=== PATIENT | female | born 1970 | race Caucasian/White ===

== ENCOUNTER 2024-05-05 08:58 | Outpatient (AMB) | payer BC, SELFPAY ==
[2024-05-05 09:12] VITALS: BP 121/84; PULSE 71; RESP 18; TEMP 36.1; O2SAT 99; BMI 36.9
--- NOTE | 2024-05-05 09:12 | PD.ORTHCLVIS ---
Vital signs 05/05/24 09:12 Height 1.74 m Height Method Stated Weight 111.754 kg Weight Measurement Method Standing Scale BMI 36.9 BP 121/84 Blood Pressure Source Automatic Cuff Blood Pressure Location Right Upper Arm Position Sitting Respiration 18 Pulse 71 Pulse Source Monitor Temp 96.9 F Temp Source Temporal Artery Scan Pulse Oximetry (%) 99 Oxygen Delivery Method Room Air Med/Allergies Allergies & Medications Allergies NSAIDS (Non-Steroidal Anti-Inflamma Allergy (Verified 05/05/24 09:13) SWELLING Medication Reconciliation ESTROGEN PATCH miscellaneous 05/05/24 [History] Exam Exam Patient is in no acute distress and is cooperative with the examination today. Breathing is nonlabored. In no respiratory distress. Bilateral extremities were evaluated and demonstrates sensation intact to light touch. Palpable pedal pulses are present. No significant edema is present. Bilateral hips were examined. The patient has no pain with log roll of the hips. Internal rotation to 30 degrees and external rotation to 30 degrees is painless. Negative FADIR. The left knee was examined. The left knee is in varus alignment. Range of motion from 0-115 degrees. Knee is stable to varus and valgus as well as AP translation with <5mm. Patient has a negative McMurrays. There is no pain with patellofemoral compression and no crepitus noted. The knee is tender to palpation medially. The right knee was also examined. The right knee is in varus alignment. Range of motion from 0-120 degrees. Knee is stable to varus and valgus as well as AP translation with <5mm. Patient has a negative McMurrays. There is no pain with patellofemoral compression and no crepitus noted. The knee is tender to palpation medially. Bilateral knee x-rays were reviewed from [facility]. This demonstrates bilateral knee arthritis with complete obliteration of medial joint space and varus deformity Assessment and Plan Problem List (1) Degenerative arthritis of knee, bilateral: Status: Acute Plan: Patient is a pleasant 54-year-old female with bilateral knee pain and bilateral knee arthritis. We discussed nonoperative options. She is not interested in surgery at this time. She cannot take anti-inflammatories which is problematic. We recommend continued cortisone injections. She would like to try hyaluronic acid injections sometime as well. Office Procedures GNS Level of Care Nursing/Assessment Patient Status: Initial/New Patient Nursing Assessment/Reassesment: Medication Reconciliation, Update PMH in EMR and Vital Signs Coordination of Care: Complex Care and Chronic Disease 1-5, Education Complex Pt/Fam, Consent,records obtained, informed consent, Results/Orders obtained and Staff clarify orders New Patient Charge New Patient Point Assignment: 1094 New Patient Point Charge: CAR SHUNTER Level 3 ([id number]) MA Intake Visit Data Collection New Patient or Established: New Patient (never been to [facility] [place]) Reason for Visit:: BILATERAL KNEE PAIN Seen by Clinical Staff ONLY (RN/MA): No Verbal consent obtained for Telemed visit?: No Line Construction Engineer Required: No PCP or OBGYN visit in last 3 months: Yes Hx Now: No Do You Feel Safe at Home: Yes Authorities Contacted: N/A Questionairres Past Medical History Past Medical History Have you ever been diagnosed with any of the following: Subjective Visit Visit for: new patient and knee Immunization / Flu Flu Vaccine in the Last 12 Months: Yes Flu Vaccine Exclusion Criteria: Already Received History of Present Illness Chief complaint: BILATERAL KNEE PAIN Date of injury / onset of symptoms: 12/2019 Chiqui is a pleasant 54-year-old female with bilateral knee pain and bilateral knee arthritis. She is a patient of Dr. Baeza and was injected recently 2 months ago. She works in [employer]. She cannot take anti-inflammatories due to a true anaphylactic allergy. The pain is starting affect her. She lost 30 pounds recently. Personal History Occupation: COUNSELOR Red flag PMH: BMI and none BMI Counceling provided: Yes Pain Pain level (0-10): 8 Pain duration: COMES AND GOES Pain location: inside (medial), outside (lateral) and anterior Pain quality: sharp, dull and aching Pain timing: increases with activity and stairs Associated signs & symptoms: numbness Ambulatory data Ambulatory device: none Treatments Number of previous injections: 2 Improvement with previous injections: Yes Improvement with PT: No Improvement with NSAIDS: no (ALLERGIC ) Review of Systems Review of Systems: All systems negative unless otherwise noted in HPI.
== END 2024-05-05 09:33 | disposition home or self-care (01) ==
PROVIDERS: PCP Family Medicine; Referring Provider Orthopaedic Surgery; Supervising Provider Orthopaedic Surgery Adult Reconstructive Orthopaedic Surgery; Visit Provider Orthopaedic Surgery Adult Reconstructive Orthopaedic Surgery
DX: M17.0 Bilateral primary osteoarthritis of knee (principal); M25.562 Pain in left knee; M25.561 Pain in right knee
CPT/HCPCS: 99203; G0463